=== PATIENT | female | born 1995 | race Caucasian/White ===

== ENCOUNTER 2016-11-13 19:34 | Emergency (ER) ==
[2016-11-13 19:38] VITALS: BP 118/72; TEMP 98.1; BMI 19.2
[2016-11-13] MEDS ORDERED: TORADOL IM STA (19:57)
--- NOTE | 2016-11-13 20:00 | ED.PDOC ---
General ED Provider: Dr. CLAYTON JC Chief Complaint: Abdominal Pain Stated Complaint: c/o been having vaginal discharge, had similar problems before. was treated in the past for the clamydia Time Seen by Physician: 19:58 Mode of Arrival: Walk-In Information Source: Patient Primary Care Provider: CHUY EARLY Nursing and Triage Documentation Reviewed and Agree: Yes GI Complaint Exam - Abdominal Pain Complaint/Exam Onset: Gradual Symptoms Are: Still present Timing: Constant Initial Severity: Moderate Current Severity: Moderate Location of Pain: LUQ Radiates To: Reports: Flank Character: Reports: Aching, Throbbing Aggravating: Reports: Movement Alleviating: Reports: None Associated Signs and Symptoms: Reports: Vaginal discharge, Nausea. Denies: Diaphoresis, Fever, Cough, Chest pain, Dizziness, Back pain, Constipation, Blood in stool, Dysuria, Urinary frequency, Decreased urine output, Decreased appetite, Vaginal bleeding, Vomiting, Diarrhea, Sore throat, Decreased activity Related History: Reports: Similar episode AAA Risk Factors: Reports: None Cardiac Risk Factors: Reports: None Ectopic Risk Factors: Reports: None Ovarian Torsion Risk Factors: Reports: None Surgical Obstruction Risk Factors: Reports: None Related Surgical History: Reports: None Patient Rh Status: Unknown Abdominal Findings: Absent: Pulsatile mass, Abdominal distention, Unequal femoral pulses, Rebound tenderness, CVA Tenderness Differential Diagnoses: UTI, PID Review of Systems - Review Of Systems Constitutional: Reports: No symptoms Eyes: Reports: No symptoms Ears, Nose, Mouth, Throat: Reports: No symptoms Respiratory: Reports: No symptoms Cardiac: Reports: No symptoms GI: Reports: No symptoms : Reports: Dysuria, Discharge Musculoskeletal: Reports: No symptoms Skin: Reports: No symptoms Neurological: Reports: No symptoms Endocrine: Reports: No symptoms Hematologic/Lymphatic: Reports: No symptoms All Other Systems: Reviewed and Negative Past Medical History - Past Medical History Previously Healthy: Yes Endocrine: Reports: None Cardiovascular: Reports: None, Other (MURMUR ) Respiratory: Reports: None Hematological: Reports: None Gastrointestinal: Reports: None, PUD Genitourinary: Reports: None Neuro/Psych: Reports: None, Anxiety, Depression (PANIC ATTACKS) Musculoskeletal: Reports: None Cancer: Reports: None Last Menstrual Period: 2 months ago - Surgical History General Surgical History: Reports: Tonsillectomy, Adenoidectomy, Unknown - Family History Family History: Reports: Unknown - Social History Smoking Status: Never smoker Hx Substance Use: No Alcohol Screening: None Physical Exam - Physical Exam Appearance: Well-appearing, No pain distress, Well-nourished Eyes: JUANITO, EOMI, Conjunctiva clear ENT: Ears normal, Nose normal, Oropharynx normal Respiratory: Airway patent, Breath sounds clear, Breath sounds equal, Respirations nonlabored Cardiovascular: RRR, Pulses normal, No rub, No murmur GI/: Soft, Nontender, No masses, Bowel sounds normal, No Organomegaly Musculoskeletal: Normal strength, ROM intact, No edema, No calf tenderness Skin: Warm, Dry, Normal color Neurological: Sensation intact, Motor intact, Reflexes intact, Cranial nerves intact, Alert, Oriented Psychiatric: Affect appropriate, Mood appropriate Interpretation - Radiology Interpretation Radiology Interpretation By: Radiologist Radiology Results: Negative Critical Care Note - Critical Care Note Total Time (mins): 0 Course - Course Orders, Labs, Meds: Lab Review 11/13/16 20:02 Urine Color Yellow Urine Clarity Clear Urine pH 7.0 Ur Specific [place] 1.025 Urine Protein Negative Urine Glucose (UA) Negative Urine Ketones Negative Urine Blood Negative Urine Nitrite Negative Urine Bilirubin Negative Urine Urobilinogen 0.2 Ur Leukocyte Esterase Negative Urine Test Negative Orders Category Date Time Status CHLAMYDIA/GC AMPLIFICATION Stat LAB 11/13/16 21:25 Received URINALYSIS C & S IF INDICATED Stat LAB 11/13/16 20:02 Completed URINE Stat LAB 11/13/16 20:02 Completed VAGINAL CULTURE [GENITAL CULTURE] Stat LAB 11/13/16 21:25 Received Azithromycin [Zithromax] MEDS 11/13/16 21:28 Discontinued 500 mg PO ONCE STA Ceftriaxone Sodium [Rocephin] MEDS 11/13/16 21:28 Discontinued 250 mg IM ONCE STA Ketorolac Tromethamine [Toradol] MEDS 11/13/16 19:57 Discontinued 60 mg IM ONCE STA Lidocaine HCl/Pf [Lidocaine 1 % Amp 5 ml (Sutures)] MEDS 11/13/16 21:28 Discontinued 0.9 ml IM ONCE STA Metronidazole [Flagyl] MEDS 11/13/16 21:29 Discontinued 500 mg PO ONCE [address]A CT ABDOMEN/PELVIS WO CONTRAST Stat RADS 11/13/16 19:57 Completed Medications Discontinued Medications Generic Name Dose Route Start Last Admin Trade Name Pedromelecio PRN Reason Stop Dose Admin Azithromycin 500 mg 11/13/16 21:28 Zithromax PO 11/13/16 21:29 ONCE STA Ceftriaxone Sodium 250 mg 11/13/16 21:28 Rocephin IM 11/13/16 21:29 ONCE STA Ketorolac Tromethamine 60 mg 11/13/16 19:57 11/13/16 20:06 Toradol IM 11/13/16 19:58 60 mg ONCE STA Administration Lidocaine HCl 0.9 ml 11/13/16 21:28 Lidocaine 1 % Amp 5 Ml (Sutures) IM 11/13/16 21:29 ONCE STA Metronidazole 500 mg 11/13/16 21:29 Flagyl PO 11/13/16 21:30 ONCE STA Vital Signs: Temp Pulse Resp BP Pulse Ox 11/13/16 19:34 98.1 F 87 20 118/72 99 Departure - Departure Time of Disposition: 21:35 Disposition: HOME SELF-CARE Discharge Problem: Pelvic pain Ovarian cyst Qualifiers: Laterality: right Qualifier Code: (N83.201) Unspecified ovarian cyst, right side Instructions: Sexually Transmitted Diseases (ED) Condition: Stable Pt referred to PMD for follow-up: Yes Additional Instructions: needs f/u with OBGYN USE OF PROTECTION DISCUSSED Prescriptions: Metronidazole [Flagyl] 500 mg PO Q12HR #14 tablet Allergies/Adverse Reactions: Allergies kim flavor Adverse Reaction (Verified 11/13/16 19:38) Home Medications: Ambulatory Orders Diazepam [Valium] 5 mg PO Q12HR PRN 11/13/16 Metronidazole [Flagyl] 500 mg PO Q12HR #14 tablet 11/13/16 Disposition Discussed With: Patient, Family
[2016-11-13 20:19] LABS: BILIRUBIN,URINE Negative (NEGATIVE); KETONES,URINE Negative (NEGATIVE); LEUKOCYTE ESTERASE ,URINE Negative (NEGATIVE); NITRITE,URINE Negative (NEGATIVE); PROTEIN,URINE Negative (NEGATIVE); URINE, BLOOD Negative (NEGATIVE)
[2016-11-13 20:21] LABS: ADD URINE MICROSCOPIC NO; URINE PREGNANCY INTERNAL QC INTERNAL QC VALID
--- NOTE | 2016-11-13 21:19 | CT ---
EXAM: CT abdomen pelvis without contrast HISTORY: Left flank pain COMPARISON: 07/23/2016 TECHNIQUE: CT abdomen pelvis performed without intravenous contrast. Coronal and sagittal reformat kacey images obtained. FINDINGS: Several stable scattered areas of minimal pleural based scarring and/or nodules measuring less than 4 mm. No free air. No acute abnormalities of the bones. Heart normal in size. Evaluat ion organ parenchyma limited without contrast. Liver appears normal. Gallbladder appears normal. Pancreas appears normal. Spleen appears normal. Adrenals appear normal. No hydronephrosis or neph rolithiasis. No calculi visualized in normal course the ureters. Bladder unremarkable. Uterus is retroverted and unremarkable. Trace free fluid in the cul-de-sac. There is a 2.7 cm right ovarian cyst. Stomach appears normal. No dilated loops small bowel. No findings of appendicitis. There i s moderate fecal retention. IMPRESSION: 1. No acute inflammatory process identified in the abdomen or pelvis. No hydronephrosis or nephrol ithiasis. 2. 2.7 cm right ovarian cyst 3. Trace free fluid in the cul-de-sac, nonspecific and may be physiologic. 4. Moderate fecal retention.
[2016-11-13] MEDS ORDERED: ZITHROMAX PO STA (21:28)
[2016-11-13] MEDS ORDERED: ROCEPHIN IM STA (21:28)
[2016-11-13] MEDS ORDERED: LIDOCAINE 1 % AMP 5 ML (SUTURES) IM STA (21:28)
[2016-11-13] MEDS ORDERED: FLAGYL PO STA (21:29)
[2016-11-18 15:10] LABS: GENITAL CULTURE Final report (.)
[2016-11-20 08:56] LABS: GENITAL CULT RESULT 1 Yeast isolated. (.)
== END 2016-11-13 21:58 | disposition home or self-care (01) ==
LOC: ED 19:34
DX: N83.201 Unspecified ovarian cyst, right side (principal); N89.8 Other specified noninflammatory disorders of vagina
CPT/HCPCS: 36415; 81001; 81025; 87070; 87800; 96372; 99283

== ENCOUNTER 2017-01-01 23:18 | Emergency (ER) ==
[2017-01-01] MEDS ORDERED: SODIUM CHLORIDE 1,000 ML IV STA (23:23)
[2017-01-01 23:26] VITALS: BMI 19.5
[2017-01-01 23:36] LABS: BASOPHILS # (AUTO) 0.1 K/uL (0-0.2); EOSINOPHILS # (AUTO) 0.4 K/ul (0.0-0.7); HEMATOCRIT 37.2 % (37.0-47.0); HEMOGLOBIN 12.9 g/dl (12.0-16.0); IMMATURE GRANULOCYTE % (AUTO) 0.3 % (0.0-5.0); LYMPHOCYTES # (AUTO) 3.7 K/uL (0.60-3.4); LYMPHOCYTES % (AUTO) 47.2 (10.0-50.0); MEAN CORPUSCULAR HEMOGLOBIN 28.4 pg (27.0-31.0); MEAN CORPUSCULAR HGB CONC 34.7 (31.8-35.4); MEAN CORPUSCULAR VOLUME 81.8 fl (81.0-99.0); MONOCYTES # (AUTO) 0.6 K/uL (0.4-2.0); MONOCYTES % (AUTO) 7.4 (0-10); NEUTROPHILS % (AUTO) 39.1; PLATELET COUNT 183 10^3/uL (140-440); RED BLOOD COUNT 4.55 10^6/ul (4.20-5.40); WHITE BLOOD COUNT 7.79 K/ul (4.6-10.2)
[2017-01-02 00:01] LABS: ALANINE AMINOTRANSFERASE 19 U/L (12-78); ALBUMIN 3.8 g/dL (3.4-5.0); ALBUMIN/GLOBULIN RATIO 1.46; ALKALINE PHOSPHATASE 99 U/L (42-98); ANION GAP 9.8; ASPARTATE AMINO TRANSFERASE 18 U/L (15-37); BILIRUBIN,TOTAL 0.28 mg/dL (0.00-1.20); BLOOD UREA NITROGEN 11 mg/dL (7-18); BUN/CREATININE RATIO 15.49; CALCIUM 9.2 mg/dL (8.2-10.2); CARBON DIOXIDE 26 mmol/L (21-32); CHLORIDE 106 mmol/L (98-107); CREATINE KINASE 93 U/L; CREATININE 0.71 mg/dL (0.60-1.30); GLUCOSE 122 mg/dL (70-110); POTASSIUM 3.8 mmol/L (3.5-5.10); SODIUM 138 mmol/L (136-145); TOTAL PROTEIN 6.4 g/dL (6.4-8.2)
--- NOTE | 2017-01-02 00:01 | ED.PDOC ---
General ED Provider: Dr. PETER ARMAS Chief Complaint: Chest Pain Stated Complaint: Patient is a 21 year old c/o sharp mid/right sided chest pain. Says constant pain. Feels like heart is beating fast. Skin warm/dry to touch. Time Seen by Physician: 23:58 Mode of Arrival: Walk-In Information Source: Patient Primary Care Provider: VONDA GREEN Nursing and Triage Documentation Reviewed and Agree: Yes Cardiovascular Complaint Exam - Palpitations Complaint/Exam Onset/Duration: 1 hour Symptoms Are: Still present Timing: Intermittent Initial Severity: Moderate Current Severity: Moderate Character: Reports: Fast, Pounding, Skipped beats Aggravating: Reports: Caffeine Alleviating: Reports: None Associated Signs and Symptoms: Denies: Lightheadedness, Dizziness, Syncope, Chest pain, Shortness of breath, Diaphoresis, Nausea, Vomiting Related Surgical History: Reports: None Cardiac Risk Factors: Reports: None Pulmonary Embolism Risk Factors: Reports: None Atrial Fibrillation Risk Factors: Reports: None Thyroid Exam: Normal Differential Diagnoses: Medication induced Quality Indicator For Non-Traumatic Chest Pain/Syncope: EKG Performed Review of Systems - Review Of Systems Constitutional: Reports: No symptoms Eyes: Reports: No symptoms Ears, Nose, Mouth, Throat: Reports: No symptoms Respiratory: Reports: No symptoms Cardiac: Reports: No symptoms, Palpitations GI: Reports: No symptoms : Reports: No symptoms Musculoskeletal: Reports: No symptoms Skin: Reports: No symptoms Neurological: Reports: Anxiety, Depressed Endocrine: Reports: No symptoms Hematologic/Lymphatic: Reports: No symptoms All Other Systems: Reviewed and Negative Past Medical History - Past Medical History Previously Healthy: Yes Endocrine: Reports: None Cardiovascular: Reports: None, Other (MURMUR ) Respiratory: Reports: None Hematological: Reports: None Gastrointestinal: Reports: None, PUD Genitourinary: Reports: None Neuro/Psych: Reports: None, Anxiety, Depression (PANIC ATTACKS) Musculoskeletal: Reports: None Cancer: Reports: None Last Menstrual Period: 12/20/16 - Surgical History General Surgical History: Reports: Tonsillectomy, Adenoidectomy, Unknown - Family History Family History: Reports: Unknown - Social History Smoking Status: Never smoker Hx Substance Use: No Alcohol Screening: None - Immunizations Tetanus Shot up to Date: Yes Physical Exam - Physical Exam Appearance: Ill-appearing Eyes: JUANITO, EOMI, Conjunctiva clear ENT: Oropharynx normal Neck: Supple Respiratory: Airway patent, Breath sounds clear, Breath sounds equal, Respirations nonlabored Cardiovascular: Tachycardia GI/: Soft, Nontender, No masses, Bowel sounds normal, No Organomegaly Musculoskeletal: Normal strength, ROM intact, No edema, No calf tenderness Skin: Warm, Dry, Normal color Neurological: Sensation intact, Motor intact, Reflexes intact, Cranial nerves intact, Alert, Oriented Psychiatric: Anxious, Depressed Interpretation - Process Coordinator Time of Process Coordinator Interpretation: 23:25 Rate: Normal Rhythm: Sinus - EKG Interpretation Time of EKG #1: 23:59 Rate: Normal Rhythm: Sinus Ectopy: None Anita: NL Critical Care Note - Critical Care Note Total Time (mins): 0 Course - Course Hematology/Chemistry: 01/01/17 23:34 01/01/17 23:34 Orders, Labs, Meds: Lab Review 01/01/17 01/01/17 01/02/17 23:30 23:34 00:35 WBC 7.79 RBC 4.55 Hgb 12.9 Hct 37.2 MCV 81.8 MCH 28.4 MCHC 34.7 RDW Coeff of Cle[place] 13.3 Plt Count 183 Immature Gran % (Auto) 0.3 Neut % (Auto) 39.1 Lymph % (Auto) 47.2 [place] % (Auto) 7.4 Eos % (Auto) 5.0 Baso % (Auto) 1.0 Immature Gran # (Auto) 0.0 Neut # 3.0 Lymph # 3.7 H [place] # 0.6 Eos # 0.4 Baso # 0.1 Sodium 138 Potassium 3.8 Chloride 106 Carbon Dioxide 26 Anion Gap 9.8 BUN 11 Creatinine 0.71 Estimated GFR (MDRD) 105.00 BUN/Creatinine Ratio 15.49 Glucose 122 H Calcium 9.2 Total Bilirubin 0.28 AST 18 ALT 19 Alkaline Phosphatase 99 H Total Creatine Kinase 93 Troponin I < 0.0100 B-Natriuretic Peptide < 10 Total Protein 6.4 Albumin 3.8 Globulin 2.6 Albumin/Globulin Ratio 1.46 TSH 0.003 L Free T4 1.08 Urine Opiates Screen Negative Ur Oxycodone Screen Negative Urine Methadone Screen Negative Ur Propoxyphene Screen Negative Ur Barbiturates Screen Negative U Tricyclic Antidepress Negative Ur Phencyclidine Scrn Negative Ur Amphetamine Screen Negative U Methamphetamines Scrn Negative U Benzodiazepines Scrn Negative Urine Cocaine Screen Negative U Cannabinoids Screen Negative Orders Category Date Time Status EKG-(ED ONLY) Stat CARDIO 01/01/17 23:23 Completed ED APPLY O2 .ONCE EMERGENCY 01/01/17 23:23 Inactive ED IV/MEDIPORT/POWERPORT .ONCE EMERGENCY 01/01/17 23:23 Inactive B-TYPE NATRIURETIC PEPTIDE Stat LAB 01/01/17 23:34 Completed CBC W/ AUTO DIFF Stat LAB 01/01/17 23:34 Completed COMPREHENSIVE METABOLIC PANEL Stat LAB 01/01/17 23:34 Completed CREATINE KINASE Stat LAB 01/01/17 23:34 Completed FREE T4 (FREE THYROXINE) Stat LAB 01/01/17 23:30 Completed THYROID STIMULATING HORMONE Stat LAB 01/01/17 23:30 Completed TROPONIN I Stat LAB 01/01/17 23:34 Completed URINE DRUG SCREEN (RAPID FOR ED) [DRUG SCREEN, URINE, LAB 01/02/17 00:35 Completed RAPID] Stat Lorazepam [Ativan] MEDS 01/02/17 00:16 Discontinued 0.5 mg PO ONCE STA Medications Discontinued Medications Generic Name Dose Route Start Last Admin Trade Name Pedroq PRN Reason Stop Dose Admin Lorazepam 0.5 mg 01/02/17 00:16 01/02/17 01:07 Ativan PO 01/02/17 00:17 0.5 mg ONCE STA Administration Vital Signs: Temp Pulse Resp BP Pulse Ox 01/02/17 01:20 98.9 F 68 18 104/62 97 01/01/17 23:19 97.7 F 71 18 103/66 98 SHIELA Risk Score SHIELA Risk Score: Risk Score Odds of by 30D 0 0.1 (0.1-0.2) 1 0.3 (0.2-0.3) 2 0.4 (0.3-0.5) 3 0.7 (0.6-0.9) 4 1.2 (1.0-1.5) 5 2.2 (1.9-2.6) 6 3.0 (2.5-3.6) 7 4.8 (3.8-6.1) Departure - Departure Time of Disposition: 00:01 Disposition: HOME SELF-CARE Discharge Problem: Anxiety, Hyperthyroidism Depression Qualifiers: Depression Type: other depression Qualifier Code: (F32.89) Other specified depressive episodes Instructions: Depression (ED), Anxiety (ED), Hyperthyroidism (ED) Condition: Fair Pt referred to PMD for follow-up: Yes Additional Instructions: Push fluids Follow up with PCP in 3 days Take medications as prescribed. Prescriptions: Hydroxyzine HCl 10 mg PO TID PRN #25 tablet PRN Reason: anxeity Venlafaxine HCl [Effexor] 75 mg PO BID #60 tablet Allergies/Adverse Reactions: Allergies kim flavor Adverse Reaction (Verified 11/13/16 19:38) Home Medications: Ambulatory Orders Diazepam [Valium] 5 mg PO Q12HR PRN 11/13/16 Cyclobenzaprine HCl [Flexeril] 10 mg PO BEDTIME PRN 01/01/17 Hydroxyzine HCl 10 mg PO TID PRN #25 tablet 01/02/17 Venlafaxine HCl [Effexor] 75 mg PO BID #60 tablet 01/02/17 Disposition Discussed With: Patient, Family
[2017-01-02] MEDS ORDERED: ATIVAN PO STA (00:16)
[2017-01-02 00:55] LABS: COCAIN SCREEN,URINE NEGATIVE (NEGATIVE)
[2017-01-02 01:24] VITALS: BP 104/62; TEMP 98.9
== END 2017-01-02 01:35 | disposition home or self-care (01) ==
LOC: ED 23:18
DX: F41.9 Anxiety disorder, unspecified (principal); E05.90 Thyrotoxicosis, unspecified without thyrotoxic crisis or storm; F32.89 Other specified depressive episodes; Z79.899 Other long term (current) drug therapy
CPT/HCPCS: 36415; 80053; 80306; 82550; 83880; 84439; 84443; 84484; 85025; 93005; 93010; 99283

== ENCOUNTER 2017-01-24 19:50 | Emergency (ER) ==
[2017-01-24 19:57] VITALS: BP 114/77; TEMP 99.3; BMI 21.2
[2017-01-24 20:31] LABS: FLU INTERNAL QC INTERNAL QC VALID; RAPID FLU A NEGATIVE (NEGATIVE); RAPID FLU B NEGATIVE (NEGATIVE)
--- NOTE | 2017-01-24 20:55 | ED.PDOC ---
General ED Provider: Dr. PETER ARMAS Chief Complaint: Sore Throat Stated Complaint: patient presents with sore throat. Has been exposed to close family member with strep. Took Tylenol earliar today. Time Seen by Physician: 19:20 Mode of Arrival: Walk-In Information Source: Patient Exam Limitations: No limitations Primary Care Provider: VONDA GREEN Nursing and Triage Documentation Reviewed and Agree: Yes EENT Complaint Exam - Throat Complaint/Exam Onset/Duration: 2 days Symptoms Are: Still present Timimg: Constant Initial Severity: Moderate Current Severity: Moderate Aggravating: Reports: Eating Alleviating: Reports: Antipyretics Associated Signs and Symptoms: Reports: Dysphagia. Denies: Fever, Drooling, Foreign body sensation, Chills, Cough, Wheezing, Hoarseness, Sinus discomfort, Nasal congestion, Difficulty breathing, Lethargy, Irritability, Decreased activity, Vomiting, Diarrhea, Decreased hearing, Ear drainage Related History: Reports: Similar Episode Uvula Midline: Yes Loree-tonsillar Fluctuence: No Scarlatinaform Rash Present: No Lesions: Absent: Lip, Gums, Tongue, Buccal Mucosa, Pharynx Exanthem: Absent: Lip, Gums, Tongue, Buccal Mucosa, Pharynx Vesicles: Absent: Lip, Gums, Tongue, Buccal Mucosa, Pharynx Stridor Present: No Sinus Tenderness Present: No Tonsillar Hypertrophy Present: No Tonsillar Exudate Present: No Loree-tonsillar Swelling Present: No Adenopathy Present: No Splenomegaly Present: No Differential Diagnoses: Epiglottitis, Pharyngitis Review of Systems - Review Of Systems Constitutional: Reports: Fever Eyes: Reports: No symptoms Ears, Nose, Mouth, Throat: Reports: Throat pain Respiratory: Reports: No symptoms Cardiac: Reports: No symptoms GI: Reports: No symptoms : Reports: No symptoms Musculoskeletal: Reports: No symptoms Skin: Reports: No symptoms Neurological: Reports: No symptoms Endocrine: Reports: No symptoms Hematologic/Lymphatic: Reports: No symptoms All Other Systems: Reviewed and Negative Past Medical History - Past Medical History Previously Healthy: Yes Endocrine: Reports: None Cardiovascular: Reports: Other (MURMUR ) Respiratory: Reports: None Hematological: Reports: None Gastrointestinal: Reports: PUD Genitourinary: Reports: None Neuro/Psych: Reports: Anxiety, Depression (PANIC ATTACKS) Musculoskeletal: Reports: None Cancer: Reports: None Last Menstrual Period: 01/02/17 - Surgical History General Surgical History: Reports: Tonsillectomy, Adenoidectomy - Family History Family History: Reports: Unknown - Social History Smoking Status: Never smoker Hx Substance Use: No Alcohol Screening: None Physical Exam - Physical Exam Appearance: Ill-appearing Ill-appearing: Mild Pain Distress: Moderate Eyes: JUANITO, EOMI, Conjunctiva clear ENT: Erythema Neck: Supple Respiratory: Airway patent, Breath sounds clear, Breath sounds equal, Respirations nonlabored Cardiovascular: RRR, Pulses normal, No rub, No murmur Musculoskeletal: Normal strength, ROM intact Skin: Warm, Dry Neurological: Alert, Oriented Psychiatric: Anxious Critical Care Note - Critical Care Note Total Time (mins): 0 Course - Course Orders, Labs, Meds: Lab Review 01/24/17 20:03 Influenza A (Rapid) Negative Influenza B (Rapid) Negative Orders Category Date Time Status FLU A & B RAPID TEST [RAPID FLU A/B] Stat LAB 01/24/17 20:03 Completed MOLECULAR GROUP A STREP Stat LAB 01/24/17 20:03 Results STREP SCREEN Stat LAB 01/24/17 20:03 Results Vital Signs: Temp Pulse Resp BP Pulse Ox 01/24/17 19:51 99.3 F 80 16 114/77 98 Departure - Departure Time of Disposition: 20:53 Disposition: HOME SELF-CARE Discharge Problem: Pharyngitis Instructions: Pharyngitis in Children (ED) Condition: Fair Pt referred to PMD for follow-up: Yes Additional Instructions: Take Medications as prescribed Follow up with PCP in 3 days Take over the counter Tylenol and Motrin as needed. Prescriptions: Amoxicillin [Amoxil] 500 mg PO Q8HR #10 capsule Allergies/Adverse Reactions: Allergies kim flavor Adverse Reaction (Verified 01/24/17 19:57) Home Medications: Ambulatory Orders Diazepam [Valium] 5 mg PO Q12HR PRN 11/13/16 Cyclobenzaprine HCl [Flexeril] 10 mg PO BEDTIME PRN 01/01/17 Venlafaxine HCl [Effexor] 75 mg PO BID #60 tablet 01/02/17 Amoxicillin [Amoxil] 500 mg PO Q8HR #10 capsule 01/24/17 Disposition Discussed With: Patient, Family
== END 2017-01-24 21:00 | disposition home or self-care (01) ==
LOC: ED 19:50
DX: J02.9 Acute pharyngitis, unspecified (principal)
CPT/HCPCS: 87651; 87804; 87880; 99283

== ENCOUNTER 2017-03-11 18:54 | Emergency (ER) ==
[2017-03-11 19:00] VITALS: BP 127/88; TEMP 98.5; BMI 21.9
--- NOTE | 2017-03-11 19:08 | ED.PDOC ---
General ED Provider: Dr. KETTY LAN-ER Chief Complaint: Non-specific Complaint Stated Complaint: my breast feels tender Time Seen by Physician: 19:06 Mode of Arrival: Walk-In Information Source: Patient Exam Limitations: No limitations Primary Care Provider: VONDA GREEN Nursing and Triage Documentation Reviewed and Agree: Yes Miscellaneous Complaint Exam - Complex/Multi-System Complaint/Exam Onset/Duration: one week Symptoms Are: Still present Episodes Lasting: Hours Initial Severity: Mild Current Severity: Mild Location of Pain: right breast Character: achying Associated Signs and Symptoms: Denies: Decreased responsiveness, Confusion, Agitation, Dizziness, Weakness, Syncope, Headache, Short of air, Cough, Wheezing , Hemoptysis, Chest pain, Palpitations, Edema, Nausea, Vomiting, Diarrhea, Abdominal pain, Back pain, Dysuria, Hematemesis, Melena, Decreased oral intake, Fever, Diaphoresis, Immunocompromised, Anticoagulation Therapy, Recent medication changes, Indwelling medical instructor, Prior MRSA, Prior VRE, Recent trauma, Remote trauma Recent Echo/LV Function: No Respiratory Distress: None JVD Present: No Tachypnea Present: No Stridor Present: No Abdominal Findings: Present: Normal findings Glascow Coma Scale (see protocol): 15 Meningeal Signs Positive: No Focal Weakness: Present: None Focal Sensory Loss: Present: None Gait: Normal Gag Reflex Present: Yes Babinski Sign: Negative Right, Negative Left Skin Findings: Present: Normal findings Joint Swelling Present: No In-Dwelling Device Present: No Review of Systems - Review Of Systems Constitutional: Reports: No symptoms Eyes: Reports: No symptoms Ears, Nose, Mouth, Throat: Reports: No symptoms Respiratory: Reports: No symptoms Cardiac: Reports: No symptoms GI: Reports: No symptoms : Reports: No symptoms Musculoskeletal: Reports: No symptoms Skin: Reports: Lumps (right breast) Neurological: Reports: No symptoms Endocrine: Reports: No symptoms Hematologic/Lymphatic: Reports: No symptoms All Other Systems: Reviewed and Negative Past Medical History - Past Medical History Previously Healthy: Yes Endocrine: Reports: None Cardiovascular: Reports: Other (MURMUR ) Respiratory: Reports: None Hematological: Reports: None Gastrointestinal: Reports: PUD Genitourinary: Reports: None Neuro/Psych: Reports: Anxiety, Depression (PANIC ATTACKS) Musculoskeletal: Reports: None Cancer: Reports: None Last Menstrual Period: 3.5 weeks - Surgical History General Surgical History: Reports: Tonsillectomy, Adenoidectomy - Family History Family History: Reports: Unknown - Social History Smoking Status: Never smoker Hx Substance Use: No Alcohol Screening: None Lives: With family - Immunizations Tetanus Shot up to Date: Yes Physical Exam - Physical Exam Appearance: Well-appearing, No pain distress, Well-nourished Pain Distress: Mild Eyes: JUANITO, EOMI, Conjunctiva clear ENT: Ears normal, Nose normal, Oropharynx normal Neck: Supple Respiratory: Airway patent, Breath sounds clear, Breath sounds equal, Respirations nonlabored Cardiovascular: RRR, Pulses normal, No rub, No murmur GI/: Soft, Nontender, No masses, Bowel sounds normal, No Organomegaly Musculoskeletal: Normal strength, ROM intact, No edema, No calf tenderness Skin: Warm, Dry, Normal color Neurological: Sensation intact, Motor intact, Reflexes intact, Cranial nerves intact, Alert, Oriented Psychiatric: Affect appropriate, Mood appropriate Critical Care Note - Critical Care Note Total Time (mins): 0 Course - Course Vital Signs: Temp Pulse Resp BP Pulse Ox 03/11/17 18:55 98.5 F 105 H 18 127/88 99 Departure - Departure Time of Disposition: 19:08 Disposition: HOME SELF-CARE Discharge Problem: Breast pain, right Instructions: Breast Self Exam for Women (ED), Breast Mass (ED) Condition: Good Pt referred to PMD for follow-up: Yes Additional Instructions: call dr howard office tomorrow for arrange exam and imaging=--motrin for pain Allergies/Adverse Reactions: Allergies kim flavor Adverse Reaction (Verified 01/24/17 19:57) Home Medications: Ambulatory Orders Diazepam [Valium] 5 mg PO Q12HR PRN 11/13/16 Cyclobenzaprine HCl [Flexeril] 10 mg PO BEDTIME PRN 01/01/17 Venlafaxine HCl [Effexor] 75 mg PO BID #60 tablet 01/02/17 Amoxicillin [Amoxil] 500 mg PO Q8HR #10 capsule 01/24/17 Clonazepam [Klonopin] 0.5 mg PO BID #60 01/25/17 Venlafaxine HCl [Effexor Xr] 150 mg PO DAILY #30 01/25/17 Disposition Discussed With: Patient, Family
== END 2017-03-11 19:15 | disposition home or self-care (01) ==
LOC: ED 18:54
DX: N64.4 Mastodynia (principal)
CPT/HCPCS: 99282

== ENCOUNTER 2017-05-06 21:29 | Emergency (ER) ==
[2017-05-06 21:41] VITALS: BP 118/73; TEMP 98.8; BMI 22.6
[2017-05-06] MEDS ORDERED: AMOXIL PO STA (22:00)
[2017-05-06] MEDS ORDERED: ULTRAM PO STA (22:00)
--- NOTE | 2017-05-06 22:06 | ED.PDOC ---
General ED Provider: Dr. PETER ARMAS Chief Complaint: Tooth Problem Stated Complaint: Patient is a 31 year old female who comes to the ER with compalins of Left lower tooth pain and swelling for the past 2 days. Time Seen by Physician: 21:30 Mode of Arrival: Walk-In Information Source: Patient Exam Limitations: No limitations Primary Care Provider: VONDA GREEN Nursing and Triage Documentation Reviewed and Agree: Yes EENT Complaint Exam - Dental/Oral Complaint/Exam Mechanism of Injury: No known trauma Onset/Duration: 2 days Symptoms Are: Still present Timing: Constant Initial Severity: Moderate Current Severity: Severe Location: Left lower molar Character: Reports: Dull, Aching, Throbbing Aggravating: Reports: Heat, Cold, Chewing Alleviating: Reports: None Associated Signs and Symptoms: Denies: Swelling, Discharge, Fever, Foul odor, Foul taste in mouth Related History: Reports: Similar episode Cardiac Risk Factors: Reports: None Dental/Oral Surgical History: Reports: None Tooth Findings: Present: Percussion tenderness Cervical Lymphadenopathy Present: No Facial Swelling Present: No Bleeding Present: No Oropharynx Findings: Absent: Clots, Active bleeding Septal Hematoma: No Foreign Body Present: No Dysphagia Present: No Drooling Present: No Asymmetrical Tonsillar Swelling Present: No Uvula Midline: No Loree-tonsillar Fluctuence: No Trismus Present: No Palatal Petechiae Present: No Scarlatinaform Rash Present: No Lesions: Absent: Lip, Gums, Tongue, Buccal Mucosa, Pharynx Exanthem: Absent: Lip, Gums, Tongue, Buccal Mucosa, Pharynx Vesicles: Absent: Lip, Gums, Tongue, Buccal Mucosa, Pharynx Teeth Picture: 1 - tenderness to palpation Differential Diagnoses: Dental Abcess, Dental Caries, Fractured Tooth Review of Systems - Review Of Systems Constitutional: Reports: No symptoms Eyes: Reports: No symptoms Ears, Nose, Mouth, Throat: Reports: Mouth pain Respiratory: Reports: No symptoms Cardiac: Reports: No symptoms GI: Reports: No symptoms : Reports: No symptoms Musculoskeletal: Reports: No symptoms Skin: Reports: No symptoms Neurological: Reports: No symptoms Endocrine: Reports: No symptoms Hematologic/Lymphatic: Reports: No symptoms All Other Systems: Reviewed and Negative Past Medical History - Past Medical History Previously Healthy: Yes Endocrine: Reports: None Cardiovascular: Reports: Other (MURMUR ) Respiratory: Reports: None Hematological: Reports: None Gastrointestinal: Reports: PUD Genitourinary: Reports: None Neuro/Psych: Reports: Anxiety, Depression (PANIC ATTACKS) Musculoskeletal: Reports: None Cancer: Reports: None Last Menstrual Period: PRESENTLY - Surgical History General Surgical History: Reports: Tonsillectomy, Adenoidectomy - Family History Family History: Reports: Unknown - Social History Smoking Status: Never smoker Hx Substance Use: No Alcohol Screening: None - Immunizations Tetanus Shot up to Date: Yes Physical Exam - Physical Exam Appearance: Ill-appearing Ill-appearing: Mild Pain Distress: Severe Eyes: JUANITO, EOMI, Conjunctiva clear ENT: Ears normal, Nose normal, Oropharynx normal Neck: Supple Respiratory: Airway patent, Breath sounds clear, Breath sounds equal, Respirations nonlabored Cardiovascular: RRR, Pulses normal, No rub, No murmur Skin: Warm, Dry Neurological: Alert, Oriented Psychiatric: Affect appropriate, Mood appropriate Critical Care Note - Critical Care Note Total Time (mins): 0 Course - Course Orders, Labs, Meds: Orders Category Date Time Status Amoxicillin [Amoxil] MEDS 05/06/17 22:00 Discontinued 500 mg PO ONCE STA Tramadol HCl [Ultram] MEDS 05/06/17 22:00 Discontinued 50 mg PO ONCE STA Medications Discontinued Medications Generic Name Dose Route Start Last Admin Trade Name Freq PRN Reason Stop Dose Admin Amoxicillin 500 mg 05/06/17 22:00 Amoxil PO 05/06/17 22:01 ONCE STA Tramadol HCl 50 mg 05/06/17 22:00 Ultram PO 05/06/17 22:01 ONCE STA Vital Signs: Temp Pulse Resp BP Pulse Ox 05/06/17 21:30 98.8 F 73 18 118/73 100 Departure - Departure Time of Disposition: 22:04 Disposition: HOME SELF-CARE Discharge Problem: Toothache Instructions: Toothache (ED) Condition: Stable Pt referred to PMD for follow-up: Yes Additional Instructions: Follow up with your Dentist in 3 days Take medications as prescribed Prescriptions: Amoxicillin [Amoxil] 500 mg PO TID #30 capsule Ibuprofen [Motrin] 600 mg PO Q6H PRN #30 tablet PRN Reason: Analgesia Tramadol HCl [Ultram] 50 mg PO Q6H PRN #14 tablet PRN Reason: Severe Pain Allergies/Adverse Reactions: Allergies kim flavor Adverse Reaction (Verified 05/06/17 21:38) Home Medications: Ambulatory Orders Cyclobenzaprine HCl [Flexeril] 10 mg PO BEDTIME PRN 01/01/17 Venlafaxine HCl [Effexor Xr] 150 mg PO BEDTIME #30 04/19/17 Amoxicillin [Amoxil] 500 mg PO TID #30 capsule 05/06/17 Gabapentin 100 mg PO TID PRN 05/06/17 Ibuprofen [Motrin] 600 mg PO Q6H PRN #30 tablet 05/06/17 Tramadol HCl [Ultram] 50 mg PO Q6H PRN #14 tablet 05/06/17 Disposition Discussed With: Patient, Family
== END 2017-05-06 22:25 | disposition home or self-care (01) ==
LOC: ED 21:29
DX: K08.89 Other specified disorders of teeth and supporting structures (principal)
CPT/HCPCS: 99282

== ENCOUNTER 2017-06-22 14:09 | Outpatient (CLI) ==
--- NOTE | 2017-06-22 15:53 | US ---
EXAM: Thyroid ultrasound HISTORY: Hyperthyroidism. COMPARISON: Thyroid ultrasound 08/01/2016 TECHNIQUE: Sonographic evaluation of the thyroid was performed with limited doppler. FINDINGS: Right thyroid measures 4.5 x 1.4 x 1.0 cm. There is heterogeneous echogenicity and normal color Dop pler flow. There is a small cluster of round anechoic and hypoechoic nodules the largest measuring 0.3 x 0.3 cm. The isthmus measures 0.3 cm in thickness. The left lobe of the thyroid measures 4.5 x 1.40 1.2 cm. There is heterogeneous echogenicity and no rmal color Doppler flow. There is an ovoid cyst measuring 0.6 x 0.6 x 0.2 cm. IMPRESSION: 1. Bilateral thyroid cysts are unremarkable. 2. Heterogeneous appearance of the thyroid is indeterminate.
== END 2017-06-22 14:10 | disposition home or self-care (01) ==
LOC: RAD 14:09
PROVIDERS: ATTEND Physician Assistant
DX: E05.90 Thyrotoxicosis, unspecified without thyrotoxic crisis or storm (principal)

== ENCOUNTER 2017-08-21 16:02 | Outpatient (CLI) | END 2017-08-21 16:03 | disposition home or self-care (01) | LOC: LAB 16:02 | PROVIDERS: ATTEND Nurse Practitioner Family | DX: R10.2 Pelvic and perineal pain (principal) | CPT/HCPCS: 87800 ==

== ENCOUNTER 2017-08-22 09:27 | Outpatient (CLI) ==
--- NOTE | 2017-08-22 10:25 | US ---
EXAM: Transvaginal pelvic ultrasound. History: Pelvic and perineal pain. Comparison: CT abdomen pelvis 11/13/2016 Technique: Multiple sonographic images through the pelvis were obtained. Color duplex Doppler was u sed to interrogate vascular flow. Findings: The uterus is retroflexed measuring 7.1 cm by 4.5 cm x 5.5 cm. The endometrium measures 0 .8 cm in thickness. Blood flow was documented within each ovary. 2.9 cm hemorrhagic cyst within the right ovary. Small amount of pelvic free fluid. Impression: Small hemorrhagic cyst within the right ovary and small amount of pelvic free fluid.
== END 2017-08-22 09:28 | disposition home or self-care (01) ==
LOC: RAD 09:27
PROVIDERS: ATTEND Nurse Practitioner Family
DX: R10.2 Pelvic and perineal pain (principal)

== ENCOUNTER 2018-01-29 16:58 | Emergency (ER) ==
[2018-01-29 17:06] VITALS: BP 108/71; TEMP 98.1; BMI 24.3
--- NOTE | 2018-01-29 17:58 | ED.PDOC ---
General ED Provider: Dr. KETTY MALAVE Chief Complaint: Urinary Problem Stated Complaint: Urinary difficulty, urgency, frequency and discomfort. Has burning with urination. Time Seen by Physician: 16:55 Mode of Arrival: Walk-In Information Source: Patient Exam Limitations: No limitations Primary Care Provider: CLAYTON [facility] Nursing and Triage Documentation Reviewed and Agree: Yes Reviewed sepsis parameters & appropriate labs ordered?: Yes System Inflammatory Response Syndrome: Not Applicable Sepsis Protocol: For patient's 13 years and over: Temp is 96.8 and below OR 101 and greater Pulse >90 BPM Resp >20/minute Acutely Altered Mental Status Are patient's symptoms suggestive of a new infection, such as: -Pneumonia -Skin, Soft Tissue -Endocarditis -UTI -Bone, Joint Infection -Implantable Device -Acute Abdominal Infection -Wound Infection -Meningitis -Blood Stream Catheter Infection -Unknown System Inflammatory Response Syndrome: Not Applicable Complaint Exam - UTI Female Complaint/Exam Patient Complains of: Reports: Painful urination Symptoms Are: Still present Timing: Intermittent Initial Severity: Moderate Current Severity: Moderate Location of Pain: Reports: Suprapubic Associated Signs and Symptoms: Reports: Flank pain Related History: Denies: Similar episode Related Surgical History: Reports: None CVA Tenderness: No Suprapubic Tenderness: Yes Differential Diagnoses: Cystitis Review of Systems - Review Of Systems Constitutional: Reports: No symptoms Eyes: Reports: No symptoms Ears, Nose, Mouth, Throat: Reports: No symptoms Respiratory: Reports: No symptoms Cardiac: Reports: No symptoms GI: Reports: No symptoms : Reports: No symptoms, Burning, Pain, Urgency Musculoskeletal: Reports: No symptoms Skin: Reports: No symptoms Neurological: Reports: No symptoms Endocrine: Reports: No symptoms Hematologic/Lymphatic: Reports: No symptoms All Other Systems: Reviewed and Negative Past Medical History - Past Medical History Previously Healthy: Yes Endocrine: Reports: None Cardiovascular: Reports: Other (MURMUR ) Respiratory: Reports: None Hematological: Reports: None Gastrointestinal: Reports: PUD Genitourinary: Reports: None Neuro/Psych: Reports: Anxiety, Depression (PANIC ATTACKS) Musculoskeletal: Reports: None Cancer: Reports: None Last Menstrual Period: now - Surgical History General Surgical History: Reports: Tonsillectomy, Adenoidectomy - Family History Family History: Reports: Unknown - Social History Smoking Status: Never smoker Hx Substance Use: No Alcohol Screening: None Physical Exam - Physical Exam Appearance: Well-appearing, No pain distress, Well-nourished Eyes: JUANITO, EOMI, Conjunctiva clear ENT: Ears normal, Nose normal, Oropharynx normal Respiratory: Airway patent, Breath sounds clear, Breath sounds equal, Respirations nonlabored Cardiovascular: RRR, Pulses normal, No rub, No murmur GI/: Soft, No masses, Bowel sounds normal, No Organomegaly, Tender ( suprapubic region) Musculoskeletal: Normal strength, ROM intact, No edema, No calf tenderness Skin: Warm, Dry, Normal color Neurological: Sensation intact, Motor intact, Reflexes intact, Cranial nerves intact, Alert, Oriented Psychiatric: Affect appropriate, Mood appropriate Critical Care Note - Critical Care Note Total Time (mins): 30 Course - Course Orders, Labs, Meds: Lab Review 01/29/18 17:10 Urine Color Yellow Urine Clarity Clear Urine pH 5.5 Ur Specific [place] >=1.030 Urine Protein 2+ Urine Glucose (UA) Negative Urine Ketones Negative Urine Blood 1+ Urine Nitrite Positive Urine Bilirubin Negative Urine Urobilinogen 0.2 Ur Leukocyte Esterase Negative Urine Microscopic RBC 5-10 Ur Squamous Epith Cells 0-2 Urine Bacteria 1+ Urine Mucus 1+ Orders Category Date Time Status UA [URINALYSIS C & S IF INDICATED] Stat LAB 01/29/18 17:10 Completed URINE CULTURE Stat LAB 01/29/18 17:10 Completed Vital Signs: Temp Pulse Resp BP Pulse Ox 01/29/18 16:59 98.1 F 85 20 108/71 98 Departure - Departure Time of Disposition: 16:50 Disposition: HOME SELF-CARE Discharge Problem: UTI (urinary tract infection) Instructions: Urinary Tract Infection in Women (ED) Condition: Good Pt referred to PMD for follow-up: Yes (1 wk) IPMP verified?: No Additional Instructions: Stay well hydrated Take all meds as directed Follow up ER if worsen See PCP in 7-10 days Allergies/Adverse Reactions: Allergies kim flavor Adverse Reaction (Verified 02/19/18 13:01) Home Medications: Ambulatory Orders Amoxicillin 875 mg PO BID #20 tablet 02/19/18 Ciprofloxacin HCl/Dexameth [Ciprodex Otic Suspension] 7.5 ml OT 2-3XD #10 ml Disposition Discussed With: Patient
== END 2018-01-29 19:05 | disposition home or self-care (01) ==
LOC: ED 16:58
DX: N39.0 Urinary tract infection, site not specified (principal)
CPT/HCPCS: 81001; 87086; 87186; 99283

== ENCOUNTER 2018-02-19 12:53 | Emergency (ER) ==
[2018-02-19 13:01] VITALS: BP 122/85; TEMP 97.6; BMI 24.6
--- NOTE | 2018-02-19 13:48 | ED.PDOC ---
General ED Provider: Dr. KETTY MALAVE Chief Complaint: Earache Stated Complaint: Her child accidently struck her into the Rt Ear canal with shap toy. Now complaining of severe pain. Yesterday had decreased hearing. No drainage noted. Time Seen by Physician: 13:30 Mode of Arrival: Walk-In Information Source: Patient Primary Care Provider: CLAYTON GOMEZ Referred to ED by: Other Nursing and Triage Documentation Reviewed and Agree: Yes Reviewed sepsis parameters & appropriate labs ordered?: No System Inflammatory Response Syndrome: Not Applicable Sepsis Protocol: For patient's 13 years and over: Temp is 96.8 and below OR 101 and greater Pulse >90 BPM Resp >20/minute Acutely Altered Mental Status Are patient's symptoms suggestive of a new infection, such as: -Pneumonia -Skin, Soft Tissue -Endocarditis -UTI -Bone, Joint Infection -Implantable Device -Acute Abdominal Infection -Wound Infection -Meningitis -Blood Stream Catheter Infection -Unknown System Inflammatory Response Syndrome: Not Applicable EENT Complaint Exam - Ear Complaint/Exam Onset/Duration: yesterday Symptoms Are: Still present Timing: Constant Initial Severity: Severe Current Severity: Moderate Character: Reports: Sharp pain Aggravating: Reports: Tugging on ear, Position Alleviating: Reports: OTC Meds Associated Signs and Symptoms: Reports: Ear trauma, Discharge, Foreign body sensation Related History: Denies: Similar Episode Ear Surgical History: None Vesicles to External Pinna: No Vesicles to Tragus: No TMJ Tenderness: None Mastoid Tenderness: None Tragal Tenderness: None External Canal: Normal Tympanic Membrane: Erythema, Bulging Differential Diagnoses: Perforated TM (no evidence), Trauma, Contusion (RT TW ) Review of Systems - Review Of Systems Constitutional: Reports: No symptoms Eyes: Reports: No symptoms Ears, Nose, Mouth, Throat: Reports: No symptoms Respiratory: Reports: No symptoms Cardiac: Reports: No symptoms GI: Reports: No symptoms : Reports: No symptoms Musculoskeletal: Reports: No symptoms Skin: Reports: No symptoms Neurological: Reports: No symptoms Endocrine: Reports: No symptoms Hematologic/Lymphatic: Reports: No symptoms All Other Systems: Reviewed and Negative Past Medical History - Past Medical History Previously Healthy: Yes Endocrine: Reports: None Cardiovascular: Reports: Other (MURMUR ) Respiratory: Reports: None Hematological: Reports: None Gastrointestinal: Reports: PUD Genitourinary: Reports: None Neuro/Psych: Reports: Anxiety, Depression (PANIC ATTACKS) Musculoskeletal: Reports: None Cancer: Reports: None Last Menstrual Period: 01/24 - Surgical History General Surgical History: Reports: Tonsillectomy, Adenoidectomy - Family History Family History: Reports: Unknown - Social History Smoking Status: Never smoker Hx Substance Use: No Alcohol Screening: None Physical Exam - Physical Exam Appearance: Well-appearing, No pain distress, Well-nourished Eyes: JUANITO, EOMI, Conjunctiva clear ENT: Ears normal, Nose normal, Oropharynx normal, Erythema (RT TM/localized erythhrema) Respiratory: Airway patent, Breath sounds clear, Breath sounds equal, Respirations nonlabored Cardiovascular: RRR, Pulses normal, No rub, No murmur GI/: Soft, Nontender, No masses, Bowel sounds normal, No Organomegaly Musculoskeletal: Normal strength, ROM intact, No edema, No calf tenderness Skin: Warm, Dry, Normal color Neurological: Sensation intact, Motor intact, Reflexes intact, Cranial nerves intact, Alert, Oriented Psychiatric: Affect appropriate, Mood appropriate Critical Care Note - Critical Care Note Total Time (mins): 0 Course - Course Vital Signs: Temp Pulse Resp BP Pulse Ox 02/19/18 12:54 97.6 F 94 H 20 122/85 99 Departure - Departure Time of Disposition: 13:50 Disposition: HOME SELF-CARE Discharge Problem: Trauma of ear canal Qualifiers: Encounter type: initial encounter Qualified Code(s): S09.91XA - Unspecified injury of ear, initial encounter Tympanic membrane irritation Qualifiers: Laterality: right Qualified Code(s): H73.91 - Unspecified disorder of tympanic membrane, right ear Instructions: Ear Infection (ED) Condition: Good Pt referred to PMD for follow-up: Yes IPMP verified?: No Allergies/Adverse Reactions: Allergies kim flavor Adverse Reaction (Verified 02/19/18 13:01) Home Medications: Ambulatory Orders Amoxicillin 875 mg PO BID #20 tablet 02/19/18 Ciprofloxacin HCl/Dexameth [Ciprodex Otic Suspension] 7.5 ml OT 2-3XD #10 ml Disposition Discussed With: Patient
== END 2018-02-19 14:36 | disposition home or self-care (01) ==
LOC: ED 12:53
DX: S09.91XA Unspecified injury of ear, initial encounter (principal); H73.91 Unspecified disorder of tympanic membrane, right ear; W22.8XXA Striking against or struck by other objects, initial encounter
CPT/HCPCS: 99283

== ENCOUNTER 2018-03-22 08:50 | Emergency (ER) ==
[2018-03-22 08:50] VITALS: BMI 24.3
[2018-03-22 08:55] VITALS: BP 113/70; TEMP 97.5
[2018-03-22] MEDS ORDERED: ROCEPHIN IM STA (09:50)
[2018-03-22] MEDS ORDERED: LIDOCAINE HCL 1% SDV IM STA (09:50)
--- NOTE | 2018-03-22 09:53 | ED.PDOC ---
General ED Provider: Dr. FILI BORREGO Chief Complaint: Urinary Problem Stated Complaint: dysuria Time Seen by Physician: 09:00 (urinary tract symptoms ) Mode of Arrival: Walk-In Information Source: Patient Exam Limitations: No limitations Primary [facility] Nursing and Triage Documentation Reviewed and Agree: Yes Reviewed sepsis parameters & appropriate labs ordered?: Yes System Inflammatory Response Syndrome: Not Applicable Sepsis Protocol: For patient's 13 years and over: Temp is 96.8 and below OR 101 and greater Pulse >90 BPM Resp >20/minute Acutely Altered Mental Status Are patient's symptoms suggestive of a new infection, such as: -Pneumonia -Skin, Soft Tissue -Endocarditis -UTI -Bone, Joint Infection -Implantable Device -Acute Abdominal Infection -Wound Infection -Meningitis -Blood Stream Catheter Infection -Unknown System Inflammatory Response Syndrome: Not Applicable Complaint Exam - UTI Female Complaint/Exam Patient Complains of: Reports: Painful urination Onset/Duration: 1 day Symptoms Are: Still present Timing: Intermittent Initial Severity: Moderate Current Severity: Mild Location of Pain: Reports: Suprapubic Associated Signs and Symptoms: Denies: Fever, Chills, Flank pain, Dyspareunia, Vaginal discharge Patient Rh Status: Unknown Related History: Reports: Similar episode Related Surgical History: Reports: None CVA Tenderness: No Suprapubic Tenderness: No Review of Systems - Review Of Systems Constitutional: Reports: No symptoms Eyes: Reports: No symptoms Ears, Nose, Mouth, Throat: Reports: No symptoms Respiratory: Reports: No symptoms Cardiac: Reports: No symptoms GI: Reports: No symptoms : Reports: Dysuria Musculoskeletal: Reports: No symptoms Skin: Reports: No symptoms Neurological: Reports: No symptoms Endocrine: Reports: No symptoms Hematologic/Lymphatic: Reports: No symptoms All Other Systems: Reviewed and Negative Past Medical History - Past Medical History Previously Healthy: Yes Endocrine: Reports: None Cardiovascular: Reports: Other (MURMUR ) Respiratory: Reports: None Hematological: Reports: None Gastrointestinal: Reports: PUD Genitourinary: Reports: None Neuro/Psych: Reports: Anxiety, Depression (PANIC ATTACKS) Musculoskeletal: Reports: None Cancer: Reports: None Last Menstrual Period: 10 days ago - Surgical History General Surgical History: Reports: Tonsillectomy, Adenoidectomy - Family History Family History: Reports: Unknown - Social History Smoking Status: Never smoker Hx Substance Use: No Alcohol Screening: None Physical Exam - Physical Exam Appearance: Well-appearing, No pain distress, Well-nourished Eyes: JUANITO, EOMI, Conjunctiva clear ENT: Ears normal, Nose normal, Oropharynx normal Respiratory: Airway patent, Breath sounds clear, Breath sounds equal, Respirations nonlabored Cardiovascular: RRR, Pulses normal, No rub, No murmur GI/: Soft, Nontender, No masses, Bowel sounds normal, No Organomegaly Musculoskeletal: Normal strength, ROM intact, No edema, No calf tenderness Skin: Warm, Dry, Normal color Neurological: Sensation intact, Motor intact, Reflexes intact, Cranial nerves intact, Alert, Oriented Psychiatric: Affect appropriate, Mood appropriate Critical Care Note - Critical Care Note Total Time (mins): 0 Course - Course Orders, Labs, Meds: Lab Review 03/22/18 09:15 Urine Color [place] Urine Clarity Slightly Urine pH 5.0 Ur Specific [place] 1.025 Urine Protein 3+ Urine Glucose (UA) 1+ Urine Ketones Trace Urine Blood Negative Urine Nitrite Positive Urine Bilirubin 2+ Urine Urobilinogen 4.0 Ur Leukocyte Esterase 3+ Urine Microscopic RBC 5-10 Urine Microscopic WBC 30-50 Ur Squamous Epith Cells 2-5 Urine Bacteria 1+ Orders Category Date Time Status URINALYSIS C & S IF INDICATED Stat LAB 03/22/18 09:22 Ordered URINE CULTURE Stat LAB 03/22/18 09:15 Received Ceftriaxone Sodium [Rocephin] MEDS 03/22/18 09:50 Stat 1 gm IM ONCE STA Lidocaine HCl/Pf [Lidocaine HCl 1% Sdv] MEDS 03/22/18 09:50 Stat 2.1 ml IM ONCE STA Medications Discontinued Medications Generic Name Dose Route Start Last Admin Trade Name Zachery PRN Reason Stop Dose Admin Ceftriaxone Sodium 1 gm 03/22/18 09:50 Rocephin IM 03/22/18 09:51 ONCE STA Lidocaine HCl 2.1 ml 03/22/18 09:50 Lidocaine Hcl 1% Sdv IM 03/22/18 09:51 ONCE STA Vital Signs: Temp Pulse Resp BP Pulse Ox 03/22/18 08:50 97.5 F L 85 16 113/70 97 Departure - Departure Time of Disposition: 09:52 Disposition: HOME SELF-CARE Discharge Problem: Urinary tract infectious disease, Urinary symptoms UTI (urinary tract infection) Qualifiers: Urinary tract infection type: site unspecified Hematuria presence: without hematuria Qualified Code(s): N39.0 - Urinary tract infection, site not specified Instructions: Dysuria (ED), Urinary Tract Infection in Women (ED) Condition: Good Pt referred to PMD for follow-up: Yes IPMP verified?: No Additional Instructions: Please call your Family Physician as soon as possible to schedule a follow-up appointment. Prescriptions: Sulfamethoxazole/Trimethoprim [Bactrim Ds 800/160 mg] 1 tab PO Q12HR #8 tablet Allergies/Adverse Reactions: Allergies kim flavor Adverse Reaction (Verified 03/22/18 08:57) Home Medications: Ambulatory Orders Sulfamethoxazole/Trimethoprim [Bactrim Ds 800/160 mg] 1 tab PO Q12HR #8 tablet 03/22/18
== END 2018-03-22 10:29 | disposition home or self-care (01) ==
LOC: ED 08:50
DX: N39.0 Urinary tract infection, site not specified (principal)
CPT/HCPCS: 81001; 87086; 96372; 99283

== ENCOUNTER 2018-11-18 15:30 | Emergency (ER) | payer MEDICAID, OTHER ==
[2018-11-18 15:43] VITALS: BP 123/86; TEMP 98.2; BMI 23.2
[2018-11-18 16:59] LABS: URINE PREGNANCY TEST NEGATIVE (NEGATIVE)
--- NOTE | 2018-11-18 17:47 | ED.PDOC ---
General ED Provider: Dr. FILI BORREGO Chief Complaint: Urinary Problem Stated Complaint: dysuria Time Seen by Physician: 15:39 Mode of Arrival: Walk-In Information Source: Patient Exam Limitations: No limitations Primary Care Provider: JEET KOTHARI Nursing and Triage Documentation Reviewed and Agree: Yes Does patient meet sepsis criteria?: Yes If yes, has appropriate treatment been initiated?: No System Inflammatory Response Syndrome: Not Applicable Sepsis Protocol: For patient's 13 years and over: Temp is 96.8 and below OR 101 and greater Pulse >90 BPM Resp >20/minute Acutely Altered Mental Status Are patient's symptoms suggestive of a new infection, such as: -Pneumonia -Skin, Soft Tissue -Endocarditis -UTI -Bone, Joint Infection -Implantable Device -Acute Abdominal Infection -Wound Infection -Meningitis -Blood Stream Catheter Infection -Unknown Complaint Exam - Complaint/Exam Patient Complains of: Reports: Dysuria Onset/Duration: today Symptoms Are: Still present Timing: Intermittent Initial Severity: Moderate Current Severity: Mild Location of Pain: Reports: Suprapubic Character: Reports: Dull, Dark urine Aggravating: Reports: None Alleviating: Reports: None Associated Signs and Symptoms: Reports: Dysuria. Denies: Diaphoresis, Back pain , Fever, Hematuria, Constipation, Blood in stool, Rectal pain, Appetite change, Nausea, Vomiting, Decreased urine output, Increased urine frequency, Increased thirst, Decreased activity, Lethargy, Abdominal Pain, Bubble bath use, Vaginal bleeding, Vaginal discharge, Genital swelling, Genital blisters, Retained foreign body Ectopic Risk Factors: Reports: None Ovarian Torsion Risk Factors: Reports: None Surgical Obstruction Risk Factors: Reports: None RH Status: Unknown Related Surgical History: Reports: None Abdominal Findings: Present: None Review of Systems - Review Of Systems Constitutional: Reports: No symptoms Eyes: Reports: No symptoms Ears, Nose, Mouth, Throat: Reports: No symptoms Respiratory: Reports: No symptoms Cardiac: Reports: No symptoms GI: Reports: No symptoms : Reports: Dysuria Musculoskeletal: Reports: No symptoms Skin: Reports: No symptoms Neurological: Reports: No symptoms Endocrine: Reports: No symptoms Hematologic/Lymphatic: Reports: No symptoms All Other Systems: Reviewed and Negative Past Medical History - Past Medical History Previously Healthy: Yes Endocrine: Reports: None Cardiovascular: Reports: Other (MURMUR ) Respiratory: Reports: None Hematological: Reports: None Gastrointestinal: Reports: PUD Genitourinary: Reports: None Neuro/Psych: Reports: Anxiety, Depression (PANIC ATTACKS) Musculoskeletal: Reports: None Cancer: Reports: None Last Menstrual Period: first week of october - Surgical History General Surgical History: Reports: Tonsillectomy, Adenoidectomy - Family History Family History: Reports: Unknown - Social History Smoking Status: Never smoker, Dips snuff Hx Substance Use: No Alcohol Screening: None Physical Exam - Physical Exam Appearance: Well-appearing, No pain distress, Well-nourished Eyes: JUANITO, EOMI, Conjunctiva clear ENT: Ears normal, Nose normal, Oropharynx normal Respiratory: Airway patent, Breath sounds clear, Breath sounds equal, Respirations nonlabored Cardiovascular: RRR, Pulses normal, No rub, No murmur GI/: Soft, Nontender, No masses, Bowel sounds normal, No Organomegaly Musculoskeletal: Normal strength, ROM intact, No edema, No calf tenderness Skin: Warm, Dry, Normal color Neurological: Sensation intact, Motor intact, Reflexes intact, Cranial nerves intact, Alert, Oriented Psychiatric: Affect appropriate, Mood appropriate Critical Care Note - Critical Care Note Total Time (mins): 0 Course - Course Orders, Labs, Meds: Lab Review 11/18/18 11/18/18 16:33 16:33 Urine Color Yellow Urine Clarity Cloudy Urine pH 5.0 Ur Specific [place] >=1.030 Urine Protein 1+ Urine Glucose (UA) Negative Urine Ketones Negative Urine Blood 2+ Urine Nitrite Negative Urine Bilirubin Negative Urine Urobilinogen 0.2 Ur Leukocyte Esterase 2+ Urine Microscopic RBC 10-20 Urine Microscopic WBC 10-20 Ur Squamous Epith Cells 2-5 Urine Bacteria 1+ Urine Test Negative Orders Category Date Time Status TEST URINE [URINE ] Stat LAB 11/18/18 16:33 Completed URINALYSIS C & S IF INDICATED Stat LAB 11/18/18 16:33 Completed URINE CULTURE Stat LAB 11/18/18 16:33 Received Vital Signs: Temp Pulse Resp BP Pulse Ox 11/18/18 15:36 98.2 F 108 H 20 123/86 99 Departure - Departure Time of Disposition: 17:46 Disposition: HOME SELF-CARE Discharge Problem: Urinary tract infectious disease, Urinary symptoms Instructions: Urinary Tract Infection in Women (DC) Condition: Good Pt referred to PMD for follow-up: Yes IPMP verified?: Yes Allergies/Adverse Reactions: Allergies kim flavor Adverse Reaction (Verified 11/18/18 15:43) Home Medications: Ambulatory Orders Propranolol HCl 10 mg PO Q4H 11/18/18
== END 2018-11-18 17:50 | disposition home or self-care (01) ==
LOC: ED 15:30
DX: N39.0 Urinary tract infection, site not specified (principal); Z72.0 Tobacco use
CPT/HCPCS: 81001; 81025; 87086; 99283